=== PATIENT | male | born 1945 | race Caucasian/White ===

== ENCOUNTER → 2016-10-11 | Outpatient (CLI) | payer OTHER ==
[2016-10-03 01:58] VITALS: BP 137/74
[2016-10-11 12:12] LABS: BASOPHILS % (AUTO) 0.4 % (0.2-1.0); EOSINOPHILS # (AUTO) 0.1 x10^3/uL (0.0-0.2); EOSINOPHILS % (AUTO) 1.4 % (0.9-2.9); HEMATOCRIT 34.4 % (42.0-54.0); HEMOGLOBIN 11.4 g/dL (13.5-18.0); LYMPHOCYTES # (AUTO) 0.4 X10^3/uL (1.3-2.9); LYMPHOCYTES % (AUTO) 9.6 % (21.0-51.0); MEAN CORPUSCULAR HGB CONC 33.2 g/dL (33.0-35.0); MEAN CORPUSCULAR VOLUME 87.2 fL (80.0-100.0); MEAN PLATELET VOLUME 6.4 fL (7.4-11.0); MONOCYTES # (AUTO) 0.2 x10^3/uL (0.3-0.8); MONOCYTES % (AUTO) 4.7 % (0.0-13.0); NEUTROPHILS # (AUTO) 3.2 x10^3/uL (2.2-4.8); NEUTROPHILS % (AUTO) 83.9 % (42.0-75.0); PLATELET COUNT 115 X10^3/uL (150.0-450.0); RED BLOOD COUNT 3.94 X10^6/uL (4.7-6.0); RED CELL DISTRIBUTION WIDTH 20.6 % (11.6-16.5); WHITE BLOOD COUNT 3.8 X10^3/uL (3.6-10.0)
[2016-10-11 12:25] LABS: ANISOCYTOSIS SLIGHT; HYPOCHROMASIA SLIGHT; PLATELET MORPHOLOGY COMMENT NORMAL (NORMAL)
[2016-10-11 12:26] LABS: MICROCYTOSIS SLIGHT
[2016-10-11 12:38] LABS: ALANINE AMINOTRANSFERASE 62 Units/L (12-78); ALBUMIN 3.3 g/dL (3.4-5.0); ALKALINE PHOSPHATASE 120 Units/L (46-116); ASPARTATE AMINO TRANSFERASE 28 Units/L (15-37); BLOOD UREA NITROGEN 15 mg/dL (7-18); CHLORIDE 105 mmol/L (98-107); COR CA(FOR HYPOALB) 9.6 mg/dL (8.5-10.1); CREATININE 1.26 mg/dL (0.70-1.30); FREE T4 (FREE THYROXINE) 1.24 ng/dL (0.76-1.46); GLUCOSE 96 mg/dL (65-99); SODIUM 140 mmol/L (136-145); TOTAL PROTEIN 7.9 g/dL (6.4-8.2); eGFR BLACK RACES > 60 (>60); eGFR NON BLACK RACES 60 (>60)
== END ==
LOC: LAB 11:39
PROVIDERS: ATTEND Internal Medicine Medical Oncology
DX: C01 Malignant neoplasm of base of tongue (principal); R53.81 Other malaise
CPT/HCPCS: 36415; 80053; 84439; 84443; 84480; 85025

== ENCOUNTER 2017-04-30 16:17 | Emergency (ER) | payer OTHER ==
[2017-04-30 16:25] VITALS: BP 131/67; BMI 26.4
--- NOTE | 2017-04-30 17:05 | DR.ABDMALE ---
HPI - Time seen Time seen: 17:00 - PCP Primary Care Physician: MAGY - HPI comment HPI Comment: PAIN SUDDEN ONSET, NON RADIATING ASSOCIATED WITH NAUSEA. NO FEVER. PATIENT HAD NORMAL BM TODAY. NO DYSURIA.HISTORY THROAT CANCER WITH RADIATION THERAPY. - Complaint Chief Complaint Doctors Comments: RIGHT SIDED ABDOMINA PAIN WITH NAUSEA. 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 Past Surgical History: Yes Surgical History: Tonsillectomy Past Surgical History Comment: HEMORRHOID SURGERY - Family History History of Family Medical Conditions: Yes Family Medical History: Cancer - Social History Does patient currently use any type of tobacco product: No Have you used tobacco products in the last 12 months: No Type of Tobacco Use: None Does any household member use tobacco: No Alcohol Use: None Do you use any recreational Drugs:: No Lives With: Family Lives Where: Home - infectious screening In the last 2 months have you had wt loss of >10#?: NO Have you had fever, night sweats or hemotysis?: No Have you traveled outside the country in the last 6 months?: No Isolation: Standard ROS - Review of Systems Constitutional: No Symptoms Reported Eyes: No Symptoms Reported ENTM: No Symptoms Reported Respiratoy: No Symptoms Reported Cardiovascular: No Symptoms Reported Gastrointestinal/Abdominal: Abdominal Pain, Nausea Genitourinary: No Symptoms Reported Neurological: No Symptoms Reported Musculoskeletal: No Symptoms Reported Integumentary: No Symptoms Reported Hematologic/Lymphatic: No Symptoms Reported Endocrine: No Symptoms Reported All Other Systems: Reviewed and Negative PE - Vital Signs Vital Signs: Temp Pulse Resp BP BP Pulse Ox 04/30/17 16:19 97.8 F 59 L 20 131/67 98 10/03/16 01:43 137/74 137/74 - General Limitations: No Limitations General Appearance: Alert - Head Head Exam: Normal Inspection - Eyes Eye exam: Normal Appearance - ENT ENT Exam: Normal Oropharynx - Neck Neck Exam: Trachea Midline - Chest Chest Inspection: Symmetric Chest Wall Rise - Respiratory Respiratory Exam: Normal Lung Sounds Bilat Respiratory Exam: Bilateral Clear to Auscultation - Cardiovascular Cardiovascular Exam: Regular Rate, Normal Rhythm, Normal Heart Sounds - Abdominal Exam Abdominal Exam: Normal Bowel Sounds, Soft, Tenderness Abdominal Tenderness: RUQ, RLQ, Moderate - Rectal Rectal Exam: Deferred - Back Back Exam: Normal Inspection - Extremeties Extremities Exam: Normal Inspection - Exam: Male: Deferred - Neurologic Neurological Exam: Alert, Oriented X3 - Psychiatric Psychiatric Exam: Normal Affect, Normal Mood - Skin Skin Exam: Normal Color MDM - Differential Diagnosis Differential Diagnosis: Bowel Obstruction, Cholelethiasis, Esophagitis, Gastritus/PUD, Pancreatitis, Urinary tract infection, Urolithiasis Course - Treatment Treatment: SEE ORDERS. - Education/Counseling Education/Counseling: Patient, Education Educated On: Diagnosis, Needs for Follow Up ROR - Labs Reviewed Laboratory Results Reviewed?: Yes Result Diagrams: 04/30/17 17:13 04/30/17 17:13 Laboratory: WBC 3.8 X10^3/uL (3.6-10.0) 04/30/17 17:13 RBC 3.06 X10^6/uL (4.7-6.0) L 04/30/17 17:13 Hgb 9.9 g/dL (13.5-18.0) L 04/30/17 17:13 Hct 28.4 % (42.0-54.0) L 04/30/17 17:13 MCV 93.1 fL (80.0-100.0) 04/30/17 17:13 MCH 32.4 pg (27.0-34.0) 04/30/17 17:13 MCHC 34.8 g/dL (33.0-35.0) 04/30/17 17:13 RDW 13.7 % (11.6-16.5) 04/30/17 17:13 Plt Count 166 X10^3/uL (150.0-450.0) 04/30/17 17:13 MPV 6.9 fL (7.4-11.0) L 04/30/17 17:13 Neut % 62.8 % (42.0-75.0) 04/30/17 17:13 Lymph % 19.7 % (21.0-51.0) L 04/30/17 17:13 [place] % 12.6 % (0.0-13.0) 04/30/17 17:13 Eos % 4.3 % (0.9-2.9) H 04/30/17 17:13 Baso % 0.6 % (0.2-1.0) 04/30/17 17:13 Neut # 2.4 x10^3/uL (2.2-4.8) 04/30/17 17:13 Lymph # 0.8 X10^3/uL (1.3-2.9) L 04/30/17 17:13 [place] # 0.5 x10^3/uL (0.3-0.8) 04/30/17 17:13 Eos # 0.2 x10^3/uL (0.0-0.2) 04/30/17 17:13 Baso # 0.0 X10^3/uL (0.0-0.1) 04/30/17 17:13 Absolute Nucleated RBC 0.1 /100WBC 04/30/17 17:13 Sodium 138 mmol/L (136-145) 04/30/17 17:13 Corrected Sodium TNP 04/30/17 17:13 Potassium 3.7 mmol/L (3.5-5.1) 04/30/17 17:13 Chloride 103 mmol/L (98-107) 04/30/17 17:13 Carbon Dioxide 26.7 mmol/L (21-32) 04/30/17 17:13 BUN 16 mg/dL (7-18) 04/30/17 17:13 Creatinine 1.37 mg/dL (0.70-1.30) H 04/30/17 17:13 Est GFR (MDRD) Af Amer > 60 (>60) 04/30/17 17:13 Est GFR (MDRD) Non-Af 54 (>60) L 04/30/17 17:13 Glucose 102 mg/dL (65-99) H 04/30/17 17:13 Calcium 8.9 mg/dL (8.5-10.1) 04/30/17 17:13 Corrected Calcium TNP 04/30/17 17:13 Total Bilirubin 0.70 mg/dL (0.2-1.0) 04/30/17 17:13 AST 116 Units/L (15-37) H 04/30/17 17:13 ALT 197 Units/L (12-78) H 04/30/17 17:13 Alkaline Phosphatase 345 Units/L (46-116) H 04/30/17 17:13 Total Protein 8.5 g/dL (6.4-8.2) H 04/30/17 17:13 Albumin 3.4 g/dL (3.4-5.0) 04/30/17 17:13 Globulin 5.1 g/dL (2.5-4.5) H 04/30/17 17:13 Albumin/Globulin Ratio 0.7 Ratio (1.1-2.1) L 04/30/17 17:13 Amylase 16 Units/L (25-115) L 04/30/17 17:13 Lipase 101 Units/L (73-393) 04/30/17 17:13 Specimen Type Clean catch urine 04/30/17 17:34 Urine Color Yellow (YELLOW) 04/30/17 17:34 Urine Appearance Hazy (CLEAR) 04/30/17 17:34 Urine pH 7.0 (5.0 - 8.0) 04/30/17 17:34 Ur Specific [place] 1.005 (1.000-1.030) 04/30/17 17:34 Urine Protein Negative (NEGATIVE) 04/30/17 17:34 Urine Glucose (UA) Negative (NEGATIVE) 04/30/17 17:34 Urine Ketones Negative (NEGATIVE) 04/30/17 17:34 Urine Occult Blood Negative (NEGATIVE) 04/30/17 17:34 Urine Nitrite Negative (NEGATIVE) 04/30/17 17:34 Urine Bilirubin Negative (NEGATIVE) 04/30/17 17:34 Urine Urobilinogen Normal (NORMAL) 04/30/17 17:34 Ur Leukocyte Esterase Negative (NEGATIVE) 04/30/17 17:34 Urine RBC 0-2 /HPF (NEGATIVE) 04/30/17 17:34 Urine WBC 0-2 /HPF (NEGATIVE) 04/30/17 17:34 Ur Squamous Epith Cells Negative /HPF (NEGATIVE) 04/30/17 17:34 Urine Bacteria Trace /HPF (NEGATIVE) 04/30/17 17:34 Ur Culture Indicated? No/not indicated 04/30/17 17:34 - XRAY XRAY Interpreted by: Radiologist XRAY Findings: REPORT DISCUSS WITH PATIENT. - Diagnosis Discharge Problem: Abdominal pain Qualifiers: Abdominal location: right lower quadrant Qualified Code(s): R10.31 - Right lower quadrant pain - Discharge Plan Disposition: 01 HOME, SELF-CARE Condition: Stable - Follow ups/Referrals Follow ups/Referrals: ARMIN BHATTI [Primary Care Provider] - 1 day - Instructions Instructions: Abdominal Pain, Adult, [id number] Additional Instructions: RETURN TO ED IF WORSE.
[2017-04-30 17:33] LABS: BASOPHILS % (AUTO) 0.6 % (0.2-1.0); EOSINOPHILS # (AUTO) 0.2 x10^3/uL (0.0-0.2); EOSINOPHILS % (AUTO) 4.3 % (0.9-2.9); HEMATOCRIT 28.4 % (42.0-54.0); HEMOGLOBIN 9.9 g/dL (13.5-18.0); LYMPHOCYTES # (AUTO) 0.8 X10^3/uL (1.3-2.9); LYMPHOCYTES % (AUTO) 19.7 % (21.0-51.0); MEAN CORPUSCULAR HEMOGLOBIN 32.4 pg (27.0-34.0); MEAN CORPUSCULAR HGB CONC 34.8 g/dL (33.0-35.0); MEAN CORPUSCULAR VOLUME 93.1 fL (80.0-100.0); MEAN PLATELET VOLUME 6.9 fL (7.4-11.0); MONOCYTES # (AUTO) 0.5 x10^3/uL (0.3-0.8); MONOCYTES % (AUTO) 12.6 % (0.0-13.0); NEUTROPHILS # (AUTO) 2.4 x10^3/uL (2.2-4.8); NEUTROPHILS % (AUTO) 62.8 % (42.0-75.0); RED BLOOD COUNT 3.06 X10^6/uL (4.7-6.0); RED CELL DISTRIBUTION WIDTH 13.7 % (11.6-16.5); WHITE BLOOD COUNT 3.8 X10^3/uL (3.6-10.0)
[2017-04-30 17:34] LABS: ALANINE AMINOTRANSFERASE 197 Units/L (12-78); ALBUMIN 3.4 g/dL (3.4-5.0); ALKALINE PHOSPHATASE 345 Units/L (46-116); AMYLASE 16 Units/L (25-115); ASPARTATE AMINO TRANSFERASE 116 Units/L (15-37); BLOOD UREA NITROGEN 16 mg/dL (7-18); CALCIUM 8.9 mg/dL (8.5-10.1); CARBON DIOXIDE 26.7 mmol/L (21-32); CHLORIDE 103 mmol/L (98-107); CREATININE 1.37 mg/dL (0.70-1.30); LIPASE 101 Units/L (73-393); PLATELET COUNT 166 X10^3/uL (150.0-450.0); SODIUM 138 mmol/L (136-145); TOTAL PROTEIN 8.5 g/dL (6.4-8.2); eGFR BLACK RACES > 60 (>60); eGFR NON BLACK RACES 54 (>60)
[2017-04-30 17:50] LABS: BILIRUBIN,URINE NEGATIVE (NEGATIVE); BLOOD/HEMOGLOBIN,URINE NEGATIVE (NEGATIVE); GLUCOSE, URINE NEGATIVE (NEGATIVE); KETONES,URINE NEGATIVE (NEGATIVE); LEUKOCYTE ESTERASE ,URINE NEGATIVE (NEGATIVE); NITRITES,URINE NEGATIVE (NEGATIVE); PROTEIN,URINE NEGATIVE (NEGATIVE); UROBILINOGEN,URINE NORMAL (NORMAL)
[2017-04-30 17:58] LABS: APPEARANCE,URINE HAZY (CLEAR); COLOR,URINE YELLOW (YELLOW)
[2017-04-30 17:59] LABS: BACTERIA,URINE TRACE /HPF (NEGATIVE); RBC,URINE 0-2 /HPF (NEGATIVE); SQUAMOUS EPITHELIAL CELL,UR NEGATIVE /HPF (NEGATIVE)
--- NOTE | 2017-04-30 20:10 | CT ---
HISTORY: Abdominal pain Study: CT abdomen and without contrast Comparison: None Technique: Multiple axial images of the abdomen and pelvis were obtained without IV contrast. Dose reduction t echniques including Automated Exposure Control (AEC) and adjustment of mA and kV were utilized. Findings: Please note evaluation is limited without use of IV contrast. The visualized portions of the lung bases are unremarkable. The liver, spleen, pancreas, kidneys, an d adrenal glands are unremarkable in their CT appearance. The gallbladder is normal. There is a small hiatal hernia noted. No renal calculi or obstructive uropathy identified. No free intraperitoneal air. No evidence of intestinal obstruction or inflammation. There is a modera te volume of retained stool. The appendix is not visualized. No free fluid is seen. The soft tissues and osseous structures are unremarkable. The vascular structures are unremarkable. N o pathologically enlarged lymph nodes are identified. The urinary bladder appears slightly thick-wall ed though also not well distended. IMPRESSION: 1. Mild thickening of the urinary bladder wall that may be due to underdistention; correlation with u rinalysis recommended. 2. Otherwise negative noncontrast exam. Reported By:
== END 2017-04-30 19:49 | disposition home or self-care (01) ==
LOC: ER 16:31
DX: R10.31 Right lower quadrant pain (principal)
CPT/HCPCS: 36415; 74176; 80053; 81001; 82150; 83690; 85025; 99282; 99283

== ENCOUNTER → 2017-05-01 | Outpatient (CLI) | payer OTHER ==
[2017-04-30 16:25] VITALS: BP 131/67
--- NOTE | 2017-05-05 11:27 | US ---
RIGHT UPPER QUADRANT ULTRASOUND HISTORY: RUQ pain Comparison: CT 04/30/2017 Technique: Multiple branham scale and color flow Doppler images of the right upper quadrant were obtaine d. Findings: Overall study is limited by overlying bowel gas. The liver is normal in echotexture and size. No foc al mass. No intrahepatic bile duct dilatation. No gallstones. No pericholecystic fluid or gallbladder wall thickening. The technologist did not report a positive sonographic Gonzalez's sign. The common bi le duct measures 4 mm. The right kidney measures 9.8 cm. No hydronephrosis or renal masses. The pancreas is obscured by ov erlying bowel gas. IMPRESSION: 1. Negative right upper quadrant ultrasound. Reported By:
== END ==
LOC: RAD 15:46
PROVIDERS: ATTEND Nurse Practitioner Family
DX: R10.11 Right upper quadrant pain (principal)
CPT/HCPCS: 76705

== ENCOUNTER → 2017-05-02 | Outpatient (CLI) | payer OTHER ==
[2017-04-30 16:25] VITALS: BP 131/67
[~2017-05-02] MED LIST: NS 100 ML IV 100 ML IV ONE
== END ==
LOC: RAD 10:16
PROVIDERS: ATTEND Nurse Practitioner Family
DX: R10.11 Right upper quadrant pain (principal)
CPT/HCPCS: 74177; A4222